=== PATIENT | female | born 1995 | race Caucasian/White ===

== ENCOUNTER 2017-11-26 16:09 | Inpatient (IN) | payer MEDICAID ==
[~2017-11-26] VITALS: Ht 170.2 cm; Wt 88.2 kg
[2017-11-26] MEDS ORDERED: PLEASE ENTER ALLERGIES MC SCH (17:00)
[2017-11-26] MEDS ORDERED: SODIUM CHLORIDE 0.9% 1,000ML IVBOLUS ONE ×2 (17:00→18:30)
[2017-11-26 17:19] LABS: MEAN CORPUSCULAR HEMOGLOBIN 29.3 pg (27.0-34.8); MEAN CORPUSCULAR VOLUME 88.6 fL (80-100); PLATELET COUNT 450 x10^3/uL (130-400); RED BLOOD COUNT 5.21 x10^6/uL (3.82-5.3); RED CELL DISTRIBUTION WIDTH 13.4 % (9.6-15.2)
[2017-11-26 17:21] LABS: PH, VENOUS 7.197 pH (7.320-7.420)
[2017-11-26 17:32] LABS: ALBUMIN 4.2 g/dL (3.4-5.0); ANION GAP 19 mmol/L (5-15); CALCIUM 8.7 mg/dL (8.5-10.1); CHLORIDE 108 mmol/L (98-107)
[2017-11-26 17:36] LABS: ALANINE AMINOTRANSFERASE 22 U/L (12-78); ALKALINE PHOSPHATASE 97 U/L (45-117); BILIRUBIN,TOTAL 0.6 mg/dL (0.2-1.0); MD YES; TOTAL PROTEIN 8.5 g/dL (6.4-8.2)
[2017-11-26 17:37] LABS: BAND#(MANUAL) 1.44 x10^3/uL; BANDS%(MANUAL) 7 % (0-7); LYMPH#(MANUAL) 0.62 x10^3/uL (1-3.4); LYMPHS% (MANUAL) 3 % (22-44); MONOS#(MANUAL) 0.21 x10^3/uL (0.3-2.7); MONOS% (MANUAL) 1 % (2-9); SEG#(MANUAL) 18.25 x10^3/uL (1.8-6.8); SEGS% (MANUAL) 89 % (42-75)
[2017-11-26 17:38] LABS: <PLATELET ESTIMATE> INCREASED; <PLT MORPHOLOGY> NORMAL PLT MORPH; <RBC MORPHOLOGY> NORMAL
[2017-11-26] MEDS ORDERED: MAALOX/HYOSCYAMINE/LIDOCAINE 45 ML BTL ONE (17:58)
[2017-11-26] MEDS ORDERED: SODIUM CHLORIDE FLUSH 10ML SYR IVF ONE (18:30)
[2017-11-26] MEDS ORDERED: INSULIN REGULAR 100 UNITS/ML, 3ML VIAL IVPush ONE (18:30)
[2017-11-26] MEDS ORDERED: SODIUM POLY SULFONATE UDC 15 GM/60 ML PO ONE (18:30)
[2017-11-26] MEDS ORDERED: CALCIUM CHLORIDE 10%, 10ML SYR IVPush ONE (18:30)
[2017-11-26 18:34] LABS: ACETONE, SERUM Large (80mg/dL) mg/dL (Negative)
[2017-11-26] MEDS ORDERED: INSULIN REGULAR 100 UNITS/ML, 3ML VIAL ONE (18:37)
[2017-11-26] MEDS ORDERED: SODIUM POLYSTYRENE SULFONATE ORAL SUSP ONE (18:37)
[2017-11-26] MEDS ORDERED: CALCIUM CHLORIDE 10%, 10ML SYR ONE (18:38)
[2017-11-26] MEDS ORDERED: ONDANSETRON 2MG/ML, 2ML ONE (19:17)
[2017-11-26] MEDS ORDERED: METOCLOPRAMIDE 5 MG/ML, 2ML IVPush PRN (19:30)
[2017-11-26] MEDS ORDERED: MAALOX/HYOSCYAMINE/LIDOCAINE 45 ML BTL PO ONE (19:30)
[2017-11-26] MEDS ORDERED: SODIUM CHLORIDE 0.9% 1,000 ML IV SCH (19:30)
[2017-11-26] MEDS: ONDANSETRON 2MG/ML, 2ML IVPush PRN (19:32)
[2017-11-26] MEDS ORDERED: FAMOTIDINE 20 MG/2 ML ONE (19:53)
[2017-11-26] MEDS ORDERED: ENOXAPARIN 40 MG/0.4 ML ONE (19:53)
[2017-11-26] MEDS: FAMOTIDINE 20 MG/2 ML IVPush SCH (20:35)
[2017-11-26] MEDS: ENOXAPARIN 40 MG/0.4 ML SQ SCH (20:35)
[2017-11-26] MEDS: REGULAR INSULIN 62.5 UNITS in SODIUM CHLORIDE 0.9% 249.375 ML IV PRN (20:38)
[2017-11-26] MEDS ORDERED: INSU100C5 SQ-INSULIN (20:54)
[2017-11-26] MEDS ORDERED: DULA1.5P SQ (20:54)
[2017-11-26] MEDS: SODIUM CHLORIDE 0.9% 1,000 ML IV SCH (21:54)
[2017-11-26] MEDS ORDERED: D5%-0.45% NACL 1,000 ML IV SCH (22:00)
[2017-11-26] MEDS ORDERED: METOCLOPRAMIDE 5 MG/ML, 2ML ONE (22:19)
[2017-11-26 23:58] LABS: HEMOGLOBIN A1C 9.6 % (4.2-6.3)
[2017-11-26 23:58] LABS: ANION GAP 18 mmol/L (5-15); CALCIUM 8.3 mg/dL (8.5-10.1); CHLORIDE 115 mmol/L (98-107); CREATININE 0.93 mg/dL (0.55-1.02)
[2017-11-27] MEDS: ONDANSETRON 2MG/ML, 2ML IVPush PRN (01:20)
[2017-11-27] MEDS: D5%-0.45% NACL 1,000 ML IV SCH ×4 (01:21→19:51)
[2017-11-27 03:41] VITALS: BP 111/55
[2017-11-27 04:00] VITALS: BP 105/52
[2017-11-27 05:09] LABS: ANION GAP 12 mmol/L (5-15); CALCIUM 8.2 mg/dL (8.5-10.1); CHLORIDE 113 mmol/L (98-107); CREATININE 0.96 mg/dL (0.55-1.02)
[2017-11-27] MEDS: SODIUM CHLORIDE 0.9% 1,000 ML IV SCH ×2 (05:54→13:08)
[2017-11-27 06:10] LABS: BASOPHILS # (AUTO) 0.06 x10^3/uL (0-0.1); BASOPHILS % (AUTO) 0 % (0-1); EOSINOPHILS % (AUTO) 1 % (1-7); LYMPHOCYTES % (AUTO) 15 % (22-44); MD NO; MEAN CORPUSCULAR HEMOGLOBIN 29.3 pg (27.0-34.8); MEAN CORPUSCULAR VOLUME 88.7 fL (80-100); MEAN PLATELET VOLUME 8.3 fL (7.4-10.4); MONOCYTES # (AUTO) 0.71 x10^3/uL (0.2-0.8); MONOCYTES % (AUTO) 4 % (2-9); NEUTROPHILS # (AUTO) 14.42 x10^3/uL (1.8-6.8); NEUTROPHILS % (AUTO) 81 % (42-75); PLATELET COUNT 460 x10^3/uL (130-400); RED CELL DISTRIBUTION WIDTH 13.7 % (9.6-15.2)
[2017-11-27 09:39] LABS: ANION GAP 9 mmol/L (5-15); CALCIUM 7.9 mg/dL (8.5-10.1); CHLORIDE 114 mmol/L (98-107); CREATININE 0.93 mg/dL (0.55-1.02)
[2017-11-27] MEDS: FAMOTIDINE 20 MG/2 ML IVPush SCH ×2 (10:01→21:03)
[2017-11-27] MEDS: REGULAR INSULIN 62.5 UNITS in SODIUM CHLORIDE 0.9% 249.375 ML IV PRN (13:04)
[2017-11-27 13:43] LABS: ANION GAP 10 mmol/L (5-15); CALCIUM 7.8 mg/dL (8.5-10.1); CHLORIDE 113 mmol/L (98-107); CREATININE 0.95 mg/dL (0.55-1.02)
[2017-11-27 17:25] LABS: ANION GAP 9 mmol/L (5-15); CHLORIDE 114 mmol/L (98-107); CREATININE 0.83 mg/dL (0.55-1.02)
[2017-11-27] MEDS ORDERED: POTASSIUM CHLORIDE 10% 20 MEQ/15 ML UDC PO ONE (19:30)
[2017-11-27] MEDS: ENOXAPARIN 40 MG/0.4 ML SQ SCH (19:51)
[2017-11-27] MEDS: INSULIN DETEMIR 100 UNITS/ML, PEN SQ-INSULIN SCH (19:51)
[2017-11-27 21:13] LABS: ANION GAP 10 mmol/L (5-15); CALCIUM 8.3 mg/dL (8.5-10.1); CHLORIDE 112 mmol/L (98-107)
[2017-11-27] MEDS ORDERED: INSULIN ASPART 100 UNITS/ML, PEN SQ-INSULIN SCH (21:30)
[2017-11-27] MEDS: INSULIN ASPART 100 UNITS/ML, PEN SQ-INSULIN SCH (21:38)
[2017-11-28] MEDS ORDERED: INSULIN ASPART 100 UNITS/ML, PEN SQ-INSULIN ONE
[2017-11-28 04:00] VITALS: BP 121/51
[2017-11-28 04:46] LABS: BASOPHILS # (AUTO) 0.02 x10^3/uL (0-0.1); BASOPHILS % (AUTO) 0 % (0-1); CALCIUM 8.4 mg/dL (8.5-10.1); CHLORIDE 114 mmol/L (98-107); EOSINOPHILS # (AUTO) 0.16 x10^3/uL (0-0.4); EOSINOPHILS % (AUTO) 2 % (1-7); LYMPHOCYTES # (AUTO) 3.23 x10^3/uL (1-3.4); LYMPHOCYTES % (AUTO) 39 % (22-44); MD NO; MEAN CORPUSCULAR HEMOGLOBIN 29.3 pg (27.0-34.8); MEAN CORPUSCULAR HGB CONC 33.5 g/dL (32.4-35.8); MEAN CORPUSCULAR VOLUME 87.4 fL (80-100); MEAN PLATELET VOLUME 8.1 fL (7.4-10.4); MONOCYTES # (AUTO) 0.45 x10^3/uL (0.2-0.8); MONOCYTES % (AUTO) 5 % (2-9); NEUTROPHILS # (AUTO) 4.38 x10^3/uL (1.8-6.8); NEUTROPHILS % (AUTO) 53 % (42-75); PLATELET COUNT 367 x10^3/uL (130-400); RED BLOOD COUNT 4.38 x10^6/uL (3.82-5.3); RED CELL DISTRIBUTION WIDTH 13.3 % (9.6-15.2)
[2017-11-28 04:51] LABS: ALANINE AMINOTRANSFERASE 17 U/L (12-78); ALBUMIN 3.1 g/dL (3.4-5.0); ALKALINE PHOSPHATASE 64 U/L (45-117); ANION GAP 7 mmol/L (5-15); BILIRUBIN,TOTAL 0.4 mg/dL (0.2-1.0); CREATININE 0.62 mg/dL (0.55-1.02); TOTAL PROTEIN 6.5 g/dL (6.4-8.2)
[2017-11-28] MEDS ORDERED: LEVOTHYROXINE 25 MCG TABLET PO SCH (06:00)
[2017-11-28] MEDS: INSULIN DETEMIR 100 UNITS/ML, PEN SQ-INSULIN SCH (07:33)
[2017-11-28] MEDS: INSULIN ASPART 100 UNITS/ML, PEN SQ-INSULIN SCH ×2 (07:33→12:10)
[2017-11-28 10:32] VITALS: BP 110/75
== END 2017-11-28 13:45 | disposition home or self-care (01) | DRG 639 ==
LOC: ED 18:37 → EDIP 19:09 → CCU 11-27 01:04 → 4NOR 11-28 10:03
PROVIDERS: ADMIT Internal Medicine; ATTEND Internal Medicine
DX: E10.10 Type 1 diabetes mellitus with ketoacidosis without coma (principal); E87.5 Hyperkalemia; D72.829 Elevated white blood cell count, unspecified; E87.6 Hypokalemia; D72.825 Bandemia; R00.0 Tachycardia, unspecified
CPT/HCPCS: 36415; 80048; 80053; 82010; 82803; 82962; 83036; 83735; 85025; 87081; 96361; 96374; 96375; J1650; J1815; J2405; J2765; J7030; J7050; S0028

== ENCOUNTER 2021-08-02 21:24 | Emergency (ER) | payer MEDICAID ==
[~2021-08-02] VITALS: Ht 172.7 cm; Wt 81.0 kg
[~2021-08-02 21:24] MED LIST: DULA1.5P SQ; INSU100C5 SQ-INSULIN
[2021-08-02 21:27] VITALS: BP 111/64
[2021-08-02] MEDS ORDERED: SODIUM CHLORIDE 0.9% 1,000ML IVBOLUS ONE (22:00)
[2021-08-02] MEDS ORDERED: SODIUM CHLORIDE FLUSH 10ML SYR IVF ONE (22:00)
[2021-08-02 22:25] LABS: BASOPHILS % (AUTO) 0 % (0-1); EOSINOPHILS % (AUTO) 1 % (1-7); LYMPHOCYTES % (AUTO) 12 % (22-44); MEAN CORPUSCULAR HEMOGLOBIN 28.4 pg (27.0-34.8); MEAN CORPUSCULAR HGB CONC 33.2 g/dL (32.4-35.8); MEAN PLATELET VOLUME 7.8 fL (7.4-10.4); MONOCYTES % (AUTO) 4 % (2-9); NEUTROPHILS % (AUTO) 83 % (42-75); PLATELET COUNT 361 x10^3/uL (130-400); RED BLOOD COUNT 4.82 x10^6/uL (3.82-5.3); RED CELL DISTRIBUTION WIDTH 14.8 % (9.6-15.2)
[2021-08-02 22:37] LABS: ALBUMIN 3.3 g/dL (3.4-5.0); ANION GAP 5 mmol/L (5-15); CALCIUM 8.3 mg/dL (8.5-10.1); CHLORIDE 104 mmol/L (98-107)
[2021-08-02 22:45] LABS: ALANINE AMINOTRANSFERASE 83 U/L (12-78); ALKALINE PHOSPHATASE 124 U/L (45-117); BILIRUBIN,TOTAL 0.8 mg/dL (0.2-1.0); CREATININE 0.76 mg/dL (0.55-1.02); TOTAL PROTEIN 7.1 g/dL (6.4-8.2)
--- NOTE | 2021-08-02 22:57 | NUR ---
CALLED FOR ROOM, NO ANSWER.
--- NOTE | 2021-08-02 23:36 | NUR ---
CALLED FOR ROOM, NO ANSWER.
--- NOTE | 2021-08-03 00:45 | NUR ---
3RD CALL FOR ROOM, NO ANSWER.
== END 2021-08-03 00:47 | disposition left against medical advice (07) ==
LOC: ED 23:59
DX: R10.11 Right upper quadrant pain (principal); R10.12 Left upper quadrant pain; R11.0 Nausea; R19.7 Diarrhea, unspecified
CPT/HCPCS: 36415; 80053; 83690; 84703; 85025; 99283